=== PATIENT | male | born 1985 | race African-American/Black ===

== ENCOUNTER 2016-08-15 20:59 | Emergency (ER) | payer BC, OTHER ==
--- NOTE | ~2016-08-15 | CR111 ---
[facility] A Service of [facility] & [facility] RADIOLOGY TEXT RESULTS PATIENT: EMBER CANTU LOCATION: [facility] : 89 UNIT #: [id number] AGE: [address]: GINO ROCK APRN SEX: M ORDER DR: [id number] [facility] [address] [place], [place] [address] [id number] MR#: [id number] Acc #: [id number] NAME: EMBER CANTU : 1985 SEX: M STUDY DATE/TIME: 08/15/2016 21:57 UNIT: [facility] ROOM: STUDY DESCRIPTION: CR Finger 2 View 3rd Rt Attending Physician: Gino Rock Aprn Ordering Physician: Ed Doc Zaida Hernandez Primary Care Physician: No Primary Care Physician MEDICAL IMAGING REPORT This report is preliminary unless electronic signature is present EXAM Right index finger series 08/15/2016 HISTORY 30-year-old male in the ED with index finger pain and soft tissue laceration after injury. Smashed finger in car door yesterday. TECHNIQUE 3-view right index finger series. FINDINGS No fracture, dislocation or other acute osseous abnormality. Distal soft tissue laceration. No visible foreign body. IMPRESSION Distal soft tissue laceration. Right index finger series is otherwise negative. Dictated by... Giovanni Jensen M.D. THIS IS AN ELECTRONICALLY VERIFIED REPORT Giovanni Jensne M.D. at 08/19/2016 10:33 AM LUCASW/mechelle TD: 08/16/2016 02:22 JOB #: [id number] MEDICAL IMAGING REPORT Page 1 of 1 COPY
[~2016-08-15 20:59] MED LIST: NO MEDICATIONS
== END 2016-08-16 00:56 | disposition home or self-care (01) ==
LOC: CED 20:59
DX: S61.210A Laceration without foreign body of right index finger without damage to nail, initial encounter (principal); S67.190A Crushing injury of right index finger, initial encounter; W23.0XXA Caught, crushed, jammed, or pinched between moving objects, initial encounter; Y92.009 Unspecified place in unspecified non-institutional (private) residence as the place of occurrence of the external cause
CPT/HCPCS: 12001; 73140; 99283